=== PATIENT | male | born 1950 | race Caucasian/White ===

== ENCOUNTER 2016-12-06 11:51 | Observation (INO) | payer MEDICARE, BC ==
[2016-12-06] MEDS ORDERED: Aspirin 81 MG Tab.Chew PO ONE (12:22)
[2016-12-06] MEDS ORDERED: Metoprolol Tartrate 25 MG Tab ONE (12:23)
[2016-12-06] MEDS ORDERED: Metoprolol Tartrate 25 MG Tab PO ONE (12:24)
--- NOTE | 2016-12-06 12:25 | EDM.PDOC ---
ED HPI GENERAL MEDICAL PROBLEM - General Chief Complaint: General Stated Complaint: Chest pain Time Seen by Provider: 12/06/16 12:10 Source of Information: Reports: Patient History Limitations: Reports: No Limitations - History of Present Illness INITIAL COMMENTS - FREE TEXT/NARRATIVE: According to patient he has significant cardiac history. 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 Pt claims he had his breakfast around 6:30 am and at that time felt a little upset stomach and went into town. Around 10:30 he was driving back home when he felt discomfort in the epigastric area, with vague pain. Pain is constant dull achy and rates around 3/10. He did come home and felt very weak. No nausea or vomiting. No diaphoresis. No back pain. No radiation of pain into jaw or neck. Pt claims it has never been more than 3/10, he did take one 0.4mg S/L nitro around 11:30 am, presently he rates it at 2/ 10. Apparently most of patient's previous MIs have had non specific symptoms and hence his did get him into emergency room. The only prescription meds pt is on presently is lisinopril 5mg daily and lipitor 80mg daily. Pt's Iron[facility] is at [facility] in [facility]. His last [place] was in May 2015 and had 2 stents placed then. Onset: Today Onset Date: 12/06/16 Onset Time: 10:30 Location: Reports: Chest Quality: Reports: Ache Severity: Mild (3/10) Chest Pain Score (Numeric/FACES): 3 - Related Data Allergies Allergy/AdvReac Type Severity Reaction Status Date / Time No Known Allergies Allergy Verified 12/06/16 12:02 Home Meds: Home Meds Aspirin [Adult Low Dose Aspirin EC] 81 mg PO DAILY 12/31/13 [History] Folic Acid 80 mg PO DAILY 12/31/13 [History] [place]-3/DHA/Epa/Fish Oil [Fish Oil 1,000 mg Softgel] 6,000 each PO DAILY [History] Lisinopril 5 mg PO DAILY 09/24/15 [History] atorvaSTATin [Lipitor] 80 mg PO BEDTIME 09/24/15 [History] Ascorbate Calcium [Vitamin C] 500 mg PO DAILY 12/06/16 [History] Cholecalciferol (Vitamin D3) [Vitamin D3] 2,000 unit PO DAILY 12/06/16 [History] Nitroglycerin [Nitrostat] 0.4 mg SL ASDIRECTED PRN 12/06/16 [History] Past Medical History HEENT History: Reports: Hard of Hearing, Impaired Vision Cardiovascular History: Reports: Hypertension, [place] Gastrointestinal History: Reports: Diverticulosis, Other (See Below) Other Gastrointestinal History: diverticulitis Neurological History: Reports: Concussion Oncologic (Cancer) History: Reports: Other (See Below) 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 Dermatologic History: Reports: Other (See Below) Other Dermatologic History: shingles - Infectious Disease History Infectious Disease History: Reports: Chicken Pox - Past Surgical History Cardiovascular Surgical History: Reports: Carotid Stents, Other (See Below) GI Surgical History: Reports: Colonoscopy, Other (See Below) Social & Family History - Family History Family Medical History: Noncontributory - Tobacco Use Smoking Status *Q: Former Smoker Years of Tobacco use: 40 Used Tobacco, but Quit: Yes Month Tobacco Last Used: february Second Hand Smoke Exposure: No - Alcohol Use Days Per Week of Alcohol Use: 7 Number of Drinks Per Day: 1 Total Drinks Per Week: 7 - Recreational Drug Use Recreational Drug Use: No ED ROS GENERAL - Review of Systems Review Of Systems: See Below Constitutional: Denies: Fever, Chills, Diaphoresis HEENT: Reports: Sinus Problem (had mild nasal congestion and has been taking Mucinex as needed.). Denies: Rhinitis, Throat Pain, Throat Swelling, Vision Change Respiratory: Denies: Shortness of Breath, Wheezing, Pleuritic Chest Pain, Cough , Sputum Cardiovascular: Reports: Chest Pain. Denies: Lightheadedness GI/Abdominal: Denies: Abdominal Pain, Constipation, Distension, Flatus, Nausea, Vomiting : Denies: Dysuria, Flank Pain Musculoskeletal: Denies: Shoulder Pain, Arm Pain, Joint Pain, Joint Swelling Skin: Denies: Jaundice, Dryness, Pruritis, Rash Neurological: Denies: Confusion, Dizziness, Headache Psychiatric: Denies: Agitation, Anxiety, Cravings, Depression ED EXAM, GENERAL - Physical Exam Exam: See Below Exam Limited By: No Limitations General Appearance: Alert, WD/WN, No Apparent Distress Ear Exam: Bilateral Ear: TM normal Nose: Normal Inspection, Normal Mucosa, No Blood Throat/Mouth: Normal Inspection, Normal Lips, Normal Teeth, Normal Gums, Normal Oropharynx, Normal Voice, No Airway Compromise Head: Atraumatic, Normocephalic Neck: Normal Inspection, Supple, Non-Tender, Full Range of Motion Respiratory/Chest: No Respiratory Distress, Lungs Clear, Normal Breath Sounds, No Accessory Muscle Use, Chest Non-Tender Cardiovascular: Normal Peripheral Pulses, Regular Rate, Rhythm, No Edema, No Gallop, No JVD, No Murmur, No Rub Peripheral Pulses: 2+: Carotid (L), Carotid (R), Radial (L), Radial (R) GI/Abdominal: Normal Bowel Sounds, Soft, Non-Tender, No Organomegaly, No Distention, No Abnormal Bruit, No Mass Extremities: Normal Inspection, Normal Range of Motion, Non-Tender, Normal Capillary Refill, No Pedal Edema Neurological: Alert, Oriented, CN II-XII Intact, Normal Cognition, Normal Gait, Normal Reflexes, No Motor/Sensory Deficits EKG INTERPRETATION EKG Date: 12/06/16 Rhythm: NSR Rate (Beats/Min): 65 [place]: Normal P-Wave: Present QRS: Normal ST-T: Normal QT: Normal Course - Vital Signs Text/Narrative:: Pt's clinical exam is normal. Vitals are stable. His EKG is in NSR with rate of 65. No acute St or T waves changes seen. Pt was started on Oxygen by [place] at 2litres per minute. Received 4 baby aspirins. And metoprolol 12.5mg orally considering his previous [place] history and also his initial BP was 140/82mmhg and also he is not on any form of beta-tory at this point.. He rates a vague discomfort in the epigastric region, No nausea or vomiting. No dyspepsia symptoms. His CBC shows normal white count and hemoglobin of 14.4. His CMP, PT and INR are normal. His troponin is negative. At this point, I have discussed his labs and findings with him. He does not have Acute EKG changes or cardiac enzyme elevation. Considering his significant cardiac history will repeat troponin around 4 :30 Pm today and reevaluate. Also as he has some upset stomach feeling and epigastric discomfort since 6:30 AM, will give him oral Omeprazole. Last Recorded V/S: Last Vital Signs Temp 99.3 F 12/06/16 12:15 Pulse 64 12/06/16 12:29 Resp 16 12/06/16 12:15 BP 133/86 12/06/16 12:29 Pulse Ox 97 12/06/16 12:23 - Orders/Labs/Meds Orders: Active Orders 24 hr Category Date Time Status Cardiac Monitoring [RC] .As Directed Care 12/06/16 12:23 Active EKG Documentation Completion [RC] ASDIRECTED Care 12/06/16 12:21 Active Oxygen Therapy Adult [Oxygen Therapy, ED] [RC] Care 12/06/16 12:23 Active ASDIRECTED Labs: Laboratory Tests 12/06/16 12/06/16 12/06/16 Range/Units 12:10 12:10 12:10 WBC 6.4 D (4.0-11.0) K/uL RBC 4.30 L (4.50-6.50) M/uL Hgb 14.4 (13.0-18.0) g/dL Hct 40.4 (40.0-54.0) % MCV 94 (76-96) fL MCH 33.5 H (27.0-32.0) pg MCHC 35.6 H (31.0-35.0) g/dL RDW 12.8 (11.0-16.0) % Plt Count 154 (150-400) K/uL MPV 10.1 H (6.0-10.0) fL Neut % (Auto) 66.1 (45.0-70.0) % Lymph % (Auto) 22.2 (20.0-40.0) % [place] % (Auto) 8.4 (3.0-10.0) % Eos % (Auto) 2.8 (1.0-5.0) % Baso % (Auto) 0.5 (0.0-0.5) % Neut # (Auto) 4.24 (2.00-7.50) K/uL Lymph # (Auto) 1.42 L (1.50-4.00) K/uL [place] # (Auto) 0.54 (0.20-0.80) K/uL Eos # (Auto) 0.18 (0.04-0.40) K/uL Baso # (Auto) 0.03 (0.02-0.10) K/uL PT 10.8 (9.0-11.5) sec INR 1.0 (1.0-3.5) Sodium 143 (136-145) mmol/L Potassium 4.3 (3.5-5.1) mmol/L Chloride 105 (98-107) mmol/L Carbon Dioxide 25.0 (21.0-32.0) mmol/L Anion Gap 17.3 H (5.0-15.0) mmol/L BUN 18 (8-26) mg/dL Creatinine 1.34 H D (0.70-1.30) mg/dL Est Cr Clr Drug Dosing 52.76 mL/min Estimated GFR (MDRD) 53 L (>60) MLS/MIN BUN/Creatinine Ratio 13.4 (6-25) Glucose 119 H (74-100) mg/dL Calcium 8.8 (8.5-10.1) mg/dL Total Bilirubin 0.4 (0.0-1.0) mg/dL AST 26 (15-37) U/L ALT 33 (12-78) U/L Alkaline Phosphatase 101 (46-116) U/L Troponin I < 0.017 D (0.000-0.060) ng/mL Total Protein 7.3 (6.4-8.2) g/dL Albumin 4.0 (3.4-5.0) g/dL Globulin 3.3 (2.2-4.2) g/dL Albumin/Globulin Ratio 1.2 (0.8-2.0) Meds: Medications Discontinued Medications Generic Name Dose Route Start Last Admin Trade Name Freq PRN Reason Stop Dose Admin Aspirin 81 mg 12/06/16 12:22 12/06/16 12:10 Aspirin PO 12/06/16 12:23 324 mg ONETIME ONE Administration Metoprolol Tartrate Confirm 12/06/16 12:23 12/06/16 12:33 Lopressor Administered 12/06/16 12:24 Not Given Dose 25 mg .ROUTE .STK-MED ONE Metoprolol Tartrate 12.5 mg 12/06/16 12:24 12/06/16 12:29 Lopressor PO 12/06/16 12:25 12.5 mg ONETIME ONE Administration Departure - Departure Time of Disposition: 13:00 Disposition: Home, Self-Care 01 Condition: Good Clinical Impression: Chest pain - Discharge Information Forms: ED Department Discharge - Problem List & Annotations (1) Chest pain SNOMED Code(s): 20529880 Code(s): R07.9 - CHEST PAIN, UNSPECIFIED Status: Acute Current Visit: Yes - Problem List Review Problem List Initiated/Reviewed/Updated: Yes - My Orders Last 24 Hours: My Active Orders 12/06/16 12:21 EKG Documentation Completion [RC] ASDIRECTED 12/06/16 12:23 Cardiac Monitoring [RC] .As Directed Oxygen Therapy Adult [Oxygen Therapy, ED] [RC] ASDIRECTED - Assessment/Plan Last 24 Hours: My Active Orders 12/06/16 12:21 EKG Documentation Completion [RC] ASDIRECTED 12/06/16 12:23 Cardiac Monitoring [RC] .As Directed Oxygen Therapy Adult [Oxygen Therapy, ED] [RC] ASDIRECTED Assessment:: Chest pain with CAD Plan: Pt's clinical exam is normal. Vitals are stable. His EKG is in NSR with rate of 65. No acute St or T waves changes seen. Pt was started on Oxygen by [place] at 2litres per minute. Received 4 baby aspirins. And metoprolol 12.5mg orally considering his previous [place] history and also his initial BP was 140/82mmhg and also he is not on any form of beta-tory at this point.. He rates a vague discomfort in the epigastric region, No nausea or vomiting. No dyspepsia symptoms. Pt claims he used to take Coreg until April and it was stopped, but he is not sure why. His CBC shows normal white count and hemoglobin of 14.4. His CMP, PT and INR are normal. His troponin is negative. At this point, I have discussed his labs and findings with him. He does not have Acute EKG changes or cardiac enzyme elevation. Considering his significant cardiac history will repeat troponin around 4 :30 Pm today and reevaluate. Also as he has some upset stomach feeling and epigastric discomfort since 6:30 AM, will give him oral Omeprazole.
[2016-12-06] MEDS ORDERED: Omeprazole 20 MG Cap.CR PO ONE (12:57)
[2016-12-06 13:45] VITALS: BP 123/72
[2016-12-06] MEDS ORDERED: Pneumococcal 13-Valent Conjugate Vaccine 0.5 ML Syringe IM ONE (16:21)
[2016-12-06] MEDS ORDERED: atorvaSTATin 80 MG Tab PO SCH (20:00)
--- NOTE | 2016-12-06 22:25 | PCM.DCSUM1 ---
Discharge Summary - Hospital Course Free Text/Narrative:: Pt's EKG was normal. His initial troponin was negative. CBC, CMP and PT are normal. As pt did have dyspepsia since morning he did receive omeprazole 20mg orally. He was admitted for observation. Placed on lunchroom monitor. Repeat troponin done in 7 hrs was negative. Also pt's chest pain had resolved. Pt and his spouse reassured that he does not have cardiac injury. HE was started on omeprazole for 2 wks. If he does get worsening chest pain advised to return to emergency room, other wised advised to followup with his primary care provider in clinic in next 3-5 days. Brief History: presenting with epigastric discomfort since 10:30 am today. His intial troponins were negative. His EKG ws normal. Hence he was admitted for second set of troponin, and close monitoring. Kindly see H&P - Discharge Data Discharge Date: 12/06/16 Discharge Disposition: Home, Self-Care 01 Condition: Good - Discharge Diagnosis/Problem(s) (1) Chest pain SNOMED Code(s): 07635450 ICD Code: R07.9 - CHEST PAIN, UNSPECIFIED Status: Acute - Discharge Plan Home Medications: Home Meds Aspirin [Adult Low Dose Aspirin EC] 81 mg PO DAILY 12/31/13 [History] Folic Acid 80 mg PO DAILY 12/31/13 [History] [place]-3/DHA/Epa/Fish Oil [Fish Oil 1,000 mg Softgel] 6,000 each PO DAILY [History] Lisinopril 5 mg PO DAILY 09/24/15 [History] atorvaSTATin [Lipitor] 80 mg PO BEDTIME 09/24/15 [History] Ascorbate Calcium [Vitamin C] 500 mg PO DAILY 12/06/16 [History] Cholecalciferol (Vitamin D3) [Vitamin D3] 2,000 unit PO DAILY 12/06/16 [History] Nitroglycerin [Nitrostat] 0.4 mg SL ASDIRECTED PRN 12/06/16 [History] Patient Handouts: Indigestion, [id number] Forms: ED Department Discharge Referrals: PCP,None [Primary Care Provider] - - General Info Date of Service: 12/06/16 Functional Status: Reports: pain controlled, tolerating diet, ambulating, urinating - Review of Systems General: Denies: Fever, Weakness HEENT: Denies: sinus congestion, sore throat Pulmonary: Denies: shortness of breath, pleuritic chest pain, cough, sputum, wheezing Cardiovascular: Denies: Chest Pain, Lightheadedness Gastrointestinal: Denies: Abdominal pain, Flatus, Nausea, Vomiting Genitourinary: Denies: dysuria, frequency Musculoskeletal: Denies: shoulder pain, arm pain, hand pain, joint pain, joint swelling Skin: Denies: jaundice, rash - Patient Data Vitals - Most Recent: Last Vital Signs Temp 98.9 F 12/06/16 13:02 Pulse 52 L 12/06/16 13:02 Resp 16 12/06/16 13:02 BP 123/72 12/06/16 13:02 Pulse Ox 100 12/06/16 13:02 Weight - Most Recent: 95.254 kg Lab Results - Last 24 hrs: Laboratory Results - last 24 hr 12/06/16 Range/Units 16:35 Troponin I < 0.017 (0.000-0.060) ng/mL Med Orders - Current: Current Medications Discontinued Medications Ascorbic Acid (Vitamin C) 500 mg PO DAILY PENDING SALE TO [facility] Aspirin (Aspirin) 81 mg PO ONETIME ONE Stop: 12/06/16 12:23 Last Admin: 12/06/16 12:10 Dose: 324 mg Aspirin (Halfprin) 81 mg PO DAILY [facility] Atorvastatin Calcium (Lipitor) 80 mg PO BEDTIME NAE[facility] Cholecalciferol (Vitamin D3) 2,000 unit PO DAILY PENDING SALE TO [facility] Folic Acid (Folic Acid) 1 mg PO DAILY [facility] Lisinopril (Prinivil) 5 mg PO DAILY PENDING SALE TO [facility] Metoprolol Tartrate (Lopressor) Confirm Administered Dose 25 mg .ROUTE .STK-MED ONE Stop: 12/06/16 12:24 Last Admin: 12/06/16 12:33 Dose: Not Given Metoprolol Tartrate (Lopressor) 12.5 mg PO ONETIME ONE Stop: 12/06/16 12:25 Last Admin: 12/06/16 12:29 Dose: 12.5 mg Non-Formulary Medication ([place]-3/Dha/Epa/Fish Oil [Fish Oil 1,000 Mg Softgel]) 6,000 each PO DAILY PENDING SALE TO [facility] Omeprazole (Omeprazole) 20 mg PO ONETIME ONE Stop: 12/06/16 12:58 Last Admin: 12/06/16 13:03 Dose: 20 mg Pneumococcal 13-Valent Conj Vacc (Prevnar 13) 0.5 ml IM .ONCE ONE Stop: 12/06/16 16:22 Last Admin: 12/06/16 16:37 Dose: 0.5 ml - Exam General: Reports: alert, oriented HEENT: Reports: Pupils equal, Pupils reactive, EOMI, Mucous membr. moist/pink Neck: Reports: supple Lungs: Reports: Clear to auscultation, Normal respiratory effort Cardiovascular: Reports: Regular Rate, Regular Rhythm Abdomen: Reports: bowel sounds present, soft, no tenderness, no distension Extremities: Reports: no edema, normal pulses Skin: Reports: warm, dry, intact Neurological: Reports: no new focal deficit *Q Meaningful Use (DIS) - VTE *Q VTE Criteria *Q: - Stroke *Q Stroke Criteria *Q: - AMI *Q AMI Criteria *Q:
[2016-12-07] MEDS ORDERED: Cholecalciferol (Vitamin D3) 2,000 Unit Cap PO SCH (08:00)
[2016-12-07] MEDS ORDERED: [UNRECOGNIZED DRUG - OTHER] PO SCH (08:00)
[2016-12-07] MEDS ORDERED: DHA PO SCH (08:00)
[2016-12-07] MEDS ORDERED: Aspirin 81 MG Tab.EC PO SCH (08:00)
[2016-12-07] MEDS ORDERED: FISH OIL PO SCH (08:00)
[2016-12-07] MEDS ORDERED: EPA PO SCH (08:00)
[2016-12-07] MEDS ORDERED: Folic Acid 1 MG Tab PO SCH (08:00)
[2016-12-07] MEDS ORDERED: Ascorbic Acid 500 MG Tab PO SCH (08:00)
[2016-12-07] MEDS ORDERED: OMEGA PO SCH (08:00)
[2016-12-07] MEDS ORDERED: Non-Formulary Medication 1 Each (Ascorbate Calcium [Vitamin C] 500 MG) PO SCH (08:00)
[2016-12-07] MEDS ORDERED: Lisinopril 5 MG Tab PO SCH (08:00)
== END 2016-12-06 17:30 | disposition home or self-care (01) ==
LOC: LB.ED 11:51 → LB.MS 13:00 → UNDOADMOB 13:00 → LB.MS 13:02
PROVIDERS: ADMIT Family Medicine; ATTEND Family Medicine
DX: R07.9 Chest pain, unspecified (principal); I10 Essential (primary) hypertension; Z79.82 Long term (current) use of aspirin; Z79.899 Other long term (current) drug therapy; Z98.890 Other specified postprocedural states; Z87.891 Personal history of nicotine dependence; Z23 Encounter for immunization
CPT/HCPCS: 36415; 80053; 84484; 85025; 85610; 93005; 99236; 99285; A9270; G0009; G0378; 90471; 90670